=== PATIENT | male | born 1995 | race Caucasian/White ===

== ENCOUNTER 2023-05-22 09:48 | Emergency (ER) | payer MEDICAID ==
[~2023-05-22] VITALS: Ht 177.8 cm; Wt 109.0 kg
[2023-05-22 09:51] VITALS: BP 0/0; PULSE 0; RESP 0; O2SAT 0
== END 2023-05-22 11:02 ==
LOC: ER 10:03
DX: I46.9 Cardiac arrest, cause unspecified (principal); G40.909 Epilepsy, unspecified, not intractable, without status epilepticus; F10.229 Alcohol dependence with intoxication, unspecified; Y90.0 Blood alcohol level of less than 20 mg/100 ml
CPT/HCPCS: 31500; 36556; 82962; 92950; 99285; 99291